=== PATIENT | male | born 1965 | race Caucasian/White ===

== ENCOUNTER 2018-06-05 15:10 | Emergency (ER) | payer OTHER ==
[~2018-06-05] VITALS: Ht 175.3 cm; Wt 122.7 kg
[2018-06-05 15:17] VITALS: TEMP 98.9
[2018-06-05] MEDS ORDERED: HCTZ12.5TAB PO (15:36)
[2018-06-05 15:55] VITALS: BP 145/88; PULSE 85
== END 2018-06-05 15:58 | disposition home or self-care (01) ==
LOC: COL.ER 15:10
DX: S46.211A Strain of muscle, fascia and tendon of other parts of biceps, right arm, initial encounter (principal); I10 Essential (primary) hypertension; W18.39XA Other fall on same level, initial encounter; Y92.89 Other specified places as the place of occurrence of the external cause

== ENCOUNTER 2024-06-24 09:52 | Emergency (ER) | payer SELFPAY ==
[~2024-06-24] VITALS: Ht 170.2 cm; Wt 122.7 kg
[~2024-06-24 09:52] MED LIST: HCTZ12.5TAB PO
[2024-06-24 10:06] VITALS: TEMP 98.2
[2024-06-24] MEDS ORDERED: CEPHALEXIN500 M1 PO (11:39)
[2024-06-24 11:56] VITALS: BP 134/79; PULSE 74
== END 2024-06-24 12:02 | disposition home or self-care (01) ==
LOC: COL.ER 09:52
DX: S81.812A Laceration without foreign body, left lower leg, initial encounter (principal); W26.8XXA Contact with other sharp object(s), not elsewhere classified, initial encounter; W18.30XA Fall on same level, unspecified, initial encounter; Y99.0 Civilian activity done for income or pay